=== PATIENT | female | born 1960 | race Caucasian/White ===

== ENCOUNTER 2018-07-11 16:35 | Emergency (ER) | payer OTHER ==
[~2018-07-11 16:35] MED LIST: DIP25 PO; FLU150 PO; LEVO88TA42 PO; PRE20 PO
--- NOTE | 2018-07-11 16:48 | ER Report ---
History and Physical Time Seen By MD: 16:49 HPI/ROS CHIEF COMPLAINT: Left arm pain HISTORY OF PRESENT ILLNESS: 57-year-old female patient presents to the emergency room with complaint of left arm pain. Patient states that she was walking out to get the mail this afternoon. She does have some neuropathy and was unable to feel her right foot. She states that her right foot slipped and she fell landing on her bottom as well as left arm outstretched. Patient states she has pain to the forearm. She states that when rotating the arm hurts the most. She denies any numbness or tingling to her hand. Patient denies having any back pain. REVIEW OF SYSTEMS: Respiratory: No cough, no dyspnea. Cardiovascular: No chest pain, no palpitations. Gastrointestinal: No vomiting, no abdominal pain. Musculoskeletal: As noted above Allergies: Coded Allergies: sulfamethoxazole (Verified Allergy, Unknown, SKIN RASH, 07/11/18) trimethoprim (Verified Allergy, Unknown, SKIN RASH, 07/11/18) Home Meds Active Scripts Hydrocodone Bit/Acetaminophen (HYDROCODON-ACETAMINOPHEN 5-325) 1 Each Tablet, 1 EACH PO Q4-6H PRN for PAIN, #12 TAB Prov:RAMONA TAYLOR ENVIRONMENTAL CONSERVATION OFFICER 07/11/18 Reported Medications Levothyroxine Sodium (SYNTHROID) 100 Mcg Tablet, 100 MCG PO QDAY 07/11/18 Fexofenadine Hcl/Pseudoephedr (RODRI-D 24 HOUR TABLET) 1 Each Tabsr, 1 TAB PO QDAY 07/11/18 Prednisone (Prednisone) 20 Mg Tab, 20 MG PO QDAY take in decreasing doses as noted on prescription 1 2x daily x 3 days 1 daily x 3 days 1/2 daily x 3 days then stop 10/08/11 Discontinued Reported Medications Diphenhydramine Hcl (Benadryl) 25 Mg Cap, 50 MG PO Q6H 10/08/11 Fluconazole (Diflucan) 150 Mg Tab, 150 MG PO QDAY 10/08/11 Levothyroxine Sodium (Synthroid) 88 Mcg Tablet, 88 MCG PO QDAY, 0 Refills 04/21/11 Past Medical/Surgical History Patient has a past medical history of dry eyes, osteoporosis, alcohol use, Sjogren's syndrome, depression, neuropathy. Patient has a surgical history of tonsillectomy. Reviewed Nurses Notes: Yes Hx Smoking: No Hx Alcohol Use: Yes (OCC) Constitutional Vital Sign - Last 24 Hours 07/11/18 07/11/18 07/11/18 07/11/18 16:49 16:52 17:05 17:30 Temp 97.8 Pulse 73 68 Resp 12 B/P (MAP) 156/93 (114) 156/93 117/78 (91) Pulse Ox 96 O2 Delivery Room Air 07/11/18 07/11/18 07/11/18 17:35 18:00 18:05 Pulse 69 63 B/P (MAP) 125/67 (86) Pulse Ox 94 94 Physical Exam General Appearance: The patient is alert, has no immediate need for airway protection and no current signs of toxicity. Respiratory: Chest is non tender, lungs are clear to auscultation. Cardiac: regular rate and rhythm Gastrointestinal: Abdomen is soft and non tender, no masses, bowel sounds normal. Musculoskeletal: Neck: Neck is supple and non tender. Back: There is no tenderness to palpation to the back. Extremities have full range of motion and are non tender. Patient does have tenderness to the left forearm, she is able to move her fingers without any difficulties. Patient did have a reading on her left ring finger. As noted be swollen and so that was removed without any difficulties. Skin: No rashes or lesions. DIFFERENTIAL DIAGNOSIS: After history and physical exam differential diagnosis was considered for contusion, fracture, sprain. Medical Decision Making EKG/Imaging Imaging HAND COMPLETE LEFT, FOREARM LEFT Indication: Pain after trauma Comparison: None Available. Findings: No evidence of fracture, dislocation, or acute osseous abnormality of the left hand. There is a nondisplaced transverse fracture of the radial head. Small moderate joint effusion is present. No evidence of radiopaque foreign body. IMPRESSION: 1. Nondisplaced transverse radial head fracture with joint effusion 2. Negative left hand Report Dictated By: Denny Marin at 07/11/2018 5:41 PM Report E-Signed By: Denny Marin at 07/11/2018 5:46 PM LUMBAR SPINE 4 VIEWS, SACRUM COCCYX Indication: Pain after fall, fall with pain Comparison: None available FINDINGS: There are 5 lumbar type vertebral bodies. There is no acute osseous or acute alignment abnormality. There is mild diffuse spondylitic change noted within the lumbar spine most p ronounced at L3-4. No spondylolisthesis is identified. Oblique views show moderate facet arthropathy bilaterally at L5-S1. The vertebral body heights appear well-maintained. The sacrum and coccyx are intact. No fracture or dislocation is identified. IMPRESSION: 1. No acute osseous or acute alignment abnormality of the lumbar spine, sacrum and coccyx. Report Dictated By: Denny Marin at 07/11/2018 5:39 PM Report E-Signed By: Denny Marin at 07/11/2018 5:41 PM ED Course/Re-evaluation ED Course Patient was admitted to an exam room, history and physical were obtained. Differential diagnoses were considered. On examination lungs are clear, heart is regular, abdomen is soft and nontender. Patient does have tenderness to the left forearm. She is able wiggle fingers without any difficulties. She has no numbness or tingling. An x-ray of the left forearm and left hand were done. On examination of the images patient appears to have a step-off at the radial head. I did go in and reevaluated the patient was waiting for the official read from x-ray. Patient had no obvious tenderness to palpation. I discussed with the patient and her that with her not having any tenderness that she may very well have just a sprain. However we wait for the official read. The official routine back patient did have a fracture of the radial head. I discussed this with the patient. We did place the patient in a splint as described below. We will go ahead and discharge patient home at this time. We will give her a limited supply of pain medication. She is to follow-up with [facility], she is to call tomorrow to make an appointment. Patient and her verbalized understanding and agreement with plan. Procedure: Splint placement. A long-arm splint was applied. After application of the splint I re-examined the patient. The splint was adequately immobilizing the joint and distal to the splint the patient's circulation and sensation was intact. Decision to Disposition Date: Jul 11, 2018 Decision to Disposition Time: 18:35 Depart Departure Latest Vital Signs Vital Signs Date Time Temp Pulse Resp B/P (MAP) Pulse Ox O2 Delivery O2 Flow Rate FiO2 07/11/18 18:05 63 94 07/11/18 18:00 125/67 (86) 07/11/18 16:52 97.8 12 Room Air Impression: Primary Impression: Radial head fracture, closed Condition: Improved Disposition: HOME OR SELF-CARE Referrals: KAILEY AGUIAR (PCP) ROBIN MENDEZ MD New Scripts Hydrocodone Bit/Acetaminophen (HYDROCODON-ACETAMINOPHEN 5-325) 1 Each Tablet 1 EACH PO Q4-6H PRN for PAIN, #12 TAB Prov: RAMONA TAYLOR 07/11/18 Patient Instructions: Elbow Fracture (ED) Additional Instructions: Limit activity by pain. Ice the elbow through the splint; 2-3 times a day for 20-30 minutes. If the splint is feeling too tight you may loosen the bishop wrap and rewrap it. Follow up with [facility], call tomorrow to make an appointment. Keep the splint dry, wrap it with a bag and tape to keep the water out. Return to the ER with uncontrollable pain or numbness to the hand. You may take Ibuprofen as needed for pain in addition to the pain medication. Don't take any additional Tylenol while on the pain medication. Problem Qualifiers Primary Impression: Radial head fracture, closed Encounter type: initial encounter Fracture alignment: nondisplaced Laterality: left Qualified Codes: S52.125A - Nondisplaced fracture of head of left radius, initial encounter for closed fracture RAMONA TAYLOR Jul 11, 2018 16:48
[2018-07-11] MEDS ORDERED: FEXO1TAB63 PO (16:57)
[2018-07-11] MEDS ORDERED: LEVO100T95 PO (16:57)
--- NOTE | 2018-07-11 17:46 | RADIOLOGY IMAGING REPORT ---
FACILITY: [facility] PATIENT NAME: Oralia Richardson : 1960 MR: [id number] V: [id number] EXAM DATE: ORDERING PHYSICIAN: RAMONA TAYLOR TECHNOLOGIST: Location: [facility] - [place] Patient: Oralia Richardson : 1960 Visit/Account:[id number] Date of Sevice: 07/11/2018 LUMBAR SPINE 4 VIEWS, SACRUM COCCYX Indication: Pain after fall, fall with pain Comparison: None available FINDINGS: There are 5 lumbar type vertebral bodies. There is no acute osseous or acute alignment abnormality. There is mild diffuse spondylitic change noted within the lumbar spine most pronounced at L3-4. No s pondylolisthesis is identified. Oblique views show moderate facet arthropathy bilaterally at L5-S1. The vertebral body heights appear well-maintained. The sacrum and coccyx are intact. No fracture or dislocation is identified. IMPRESSION: 1. No acute osseous or acute alignment abnormality of the lumbar spine, sacrum and coccyx. Report Dictated By: Denny Marin at 07/11/2018 5:39 PM Report E-Signed By: Denny Marin at 07/11/2018 5:41 PM WSN:[email or web address]
--- NOTE | 2018-07-11 17:46 | RADIOLOGY IMAGING REPORT ---
FACILITY: [facility] PATIENT NAME: Oralia Richardson : 1960 MR: [id number] V: [id number] EXAM DATE: ORDERING PHYSICIAN: RAMONA TAYLOR TECHNOLOGIST: Location: [facility] Patient: Oralia Richardson : 1960 Visit/Account:[id number] Date of Sevice: 07/11/2018 LUMBAR SPINE 4 VIEWS, SACRUM COCCYX Indication: Pain after fall, fall with pain Comparison: None available FINDINGS: There are 5 lumbar type vertebral bodies. There is no acute osseous or acute alignment abnormality. There is mild diffuse spondylitic change noted within the lumbar spine most pronounced at L3-4. No s pondylolisthesis is identified. Oblique views show moderate facet arthropathy bilaterally at L5-S1. The vertebral body heights appear well-maintained. The sacrum and coccyx are intact. No fracture or dislocation is identified. IMPRESSION: 1. No acute osseous or acute alignment abnormality of the lumbar spine, sacrum and coccyx. Report Dictated By: Denny Marin at 07/11/2018 5:39 PM Report E-Signed By: Denny Marin at 07/11/2018 5:41 PM WSN:[email or web address]
--- NOTE | 2018-07-11 17:50 | RADIOLOGY IMAGING REPORT ---
[place] [facility] [place] Oralia Richardson : 1960 MR: [id number] V: [id number] EXAM DATE: ORDERING PHYSICIAN: RAMONA TAYLOR TECHNOLOGIST: [place] [facility] [place]: Oralia Richardson : 1960 Visit/Account:[id number] Date of Sevice: 07/11/2018 HAND COMPLETE LEFT, FOREARM LEFT Indication: Pain after trauma Comparison: None Available. Findings: No evidence of fracture, dislocation, or acute osseous abnormality of the left hand. There is a nondisplaced transverse fracture of the radial head. Small moderate joint effusion is pre sent. No evidence of radiopaque foreign body. IMPRESSION: 1. Nondisplaced transverse radial head fracture with joint effusion 2. Negative left hand Report Dictated By: Denny Marin at 07/11/2018 5:41 PM Report E-Signed By: Denny Marin at 07/11/2018 5:46 PM WSN:[email or web address]
--- NOTE | 2018-07-11 17:50 | RADIOLOGY IMAGING REPORT ---
FACILITY: [facility] - [place] PATIENT NAME: Oralia Richardson : 1960 MR: [id number] V: [id number] EXAM DATE: ORDERING PHYSICIAN: RAMONA TAYLOR TECHNOLOGIST: [facility] Patient: Oralia Richardson : 1960 Visit/Account:[id number] Date of Sevice: 07/11/2018 HAND COMPLETE LEFT, FOREARM LEFT Indication: Pain after trauma Comparison: None Available. Findings: No evidence of fracture, dislocation, or acute osseous abnormality of the left hand. There is a nondisplaced transverse fracture of the radial head. Small moderate joint effusion is pre sent. No evidence of radiopaque foreign body. IMPRESSION: 1. Nondisplaced transverse radial head fracture with joint effusion 2. Negative left hand Report Dictated By: Denny Marin at 07/11/2018 5:41 PM Report E-Signed By: Denny Marin at 07/11/2018 5:46 PM WSN:[email or web address]
[2018-07-11 18:00] VITALS: BP 125/67
[2018-07-11] MEDS ORDERED: HYDR-385 PO (18:32)
== END 2018-07-11 18:42 | disposition home or self-care (01) ==
LOC: ER 16:54
DX: S52.125A Nondisplaced fracture of head of left radius, initial encounter for closed fracture (principal); W00.0XXA Fall on same level due to ice and snow, initial encounter
CPT/HCPCS: 29105; 72120; 72220; 73090; 73130; 99284; A4565